=== PATIENT | male | born 1950 | race Caucasian/White ===

== ENCOUNTER 2020-08-20 10:18 | Inpatient (IN) ==
[2020-08-20] MEDS ORDERED: D5% in Water 1,000 ML IVC PRN (20:05)
[2020-08-20] MEDS ORDERED: Dextrose Gel 15 GM/37.5 ML TUBE PO PRN ×2 (20:05)
[2020-08-20] MEDS ORDERED: *HR* Dextrose 50 % in Water (Vial) 50 ML VIAL IVP PRN (20:05)
[2020-08-20] MEDS: Budesonide/Formoterol 160/4.5 1 PUFF INH IH SCH (20:35)
[2020-08-20] MEDS ORDERED: Insulin DETEMIR 100 UNIT/ML per UNIT SUBQ ONE (21:00)
[2020-08-20] MEDS: *HR* Amiodarone 200 MG TABLET PO SCH (21:42)
[2020-08-20] MEDS: Apixaban 2.5 MG TABLET PO SCH (21:42)
[2020-08-20] MEDS: Nystatin SUSP 5 ML UD.LIQ PO SCH (21:43)
[2020-08-21 05:03] LABS: Basophils % 0.2 %; Eosinophils % 1.3 %; Hematocrit 28.4 % (37.5-50.1); Hemoglobin 8.7 g/dL (12.9-16.9); Immature Granulocytes % 2.8 % (0-4); Lymphocytes # 1.2 K/mcL (0.6-4.6); Lymphocytes % 6.5 %; Mean Corpuscular HGB Conc 30.6 g/dL (31.6-35.5); Mean Corpuscular Hemoglobin 28.2 pg (28.0-33.3); Mean Corpuscular Volume 92.2 fL (83.0-100.0); Mean Platelet Volume 12.1 fL (9.4-12.4); Monocytes # 1.5 K/mcL (0.0-1.3); Neutrophils # 15.1 K/mcL (1.6-8.9); Platelet Count 288 K/mcL (140-400); Red Blood Count 3.08 M/mcL (4.19-5.50); Red Cell Distribution Width 16.6 % (11.5-14.5); Segmented Neutrophils % 81.2 %; White Blood Count 18.6 K/mcL (4.3-11.1)
[2020-08-21 05:04] LABS: Eosinophils # 0.2 K/mcL (0.0-0.6)
[2020-08-21 05:17] LABS: BUN/Creatinine Ratio 47 (6-26); Blood Urea Nitrogen 52 mg/dL (8-23); Calcium 8.7 mg/dL (8.6-10.3); Carbon Dioxide 36 mEq/L (23-29); Chloride 104 mEq/L (98-107); Glucose 164 mg/dL (70-105); Osmolality,Calculated 318 (280-300); Potassium 4.6 mEq/L (3.5-5.1); Sodium 145 mEq/L (136-145); eGFR For African Americans > 60 (> 60); eGFR For Non-African Americans > 60 (> 60)
[2020-08-21] MEDS: Budesonide/Formoterol 160/4.5 1 PUFF INH IH SCH ×2 (07:09→19:36)
[2020-08-21] MEDS: Tiotropium 10 INH DOSE IH SCH (07:09)
[2020-08-21] MEDS ORDERED: Furosemide 40 MG TABLET PO SCH (09:00)
[2020-08-21] MEDS: Insulin LISPRO 300 UNITS/3 ML VIAL SUBQ SCH ×6 (09:31→17:18)
[2020-08-21] MEDS: Apixaban 2.5 MG TABLET PO SCH ×2 (09:36→20:46)
[2020-08-21] MEDS: Famotidine 20 MG TABLET PO SCH (09:36)
[2020-08-21] MEDS: Nystatin SUSP 5 ML UD.LIQ PO SCH ×4 (09:36→20:47)
[2020-08-21] MEDS: Aspirin 81 MG TAB.CHEW PO SCH (09:36)
[2020-08-21] MEDS: Insulin DETEMIR 100 UNIT/ML X5UNITS SUBQ SCH ×2 (09:38→20:47)
[2020-08-21] MEDS: Albuterol 2.5 MG/3 ML NEBULIZER IH PRN ×2 (13:17→19:36)
[2020-08-21] MEDS: Acetaminophen 325 MG TABLET PO PRN ×2 (13:28→21:25)
[2020-08-21] MEDS ORDERED: levoFLOXacin 750 MG/150 ML 750 MG/150 ML BAG IVPB SCH (17:00)
[2020-08-21] MEDS: Furosemide 40 MG/4 ML VIAL IVP SCH (17:20)
[2020-08-21] MEDS: *HR* Amiodarone 200 MG TABLET PO SCH (20:47)
[2020-08-22 05:19] LABS: Basophils % 0.1 %; Eosinophils # 0.2 K/mcL (0.0-0.6); Eosinophils % 1.2 %; Hematocrit 26.7 % (37.5-50.1); Hemoglobin 8.2 g/dL (12.9-16.9); Immature Granulocytes % 1.4 % (0-4); Lymphocytes # 1.2 K/mcL (0.6-4.6); Lymphocytes % 6.1 %; Mean Corpuscular HGB Conc 30.7 g/dL (31.6-35.5); Mean Corpuscular Hemoglobin 28.1 pg (28.0-33.3); Mean Corpuscular Volume 91.4 fL (83.0-100.0); Monocytes # 1.4 K/mcL (0.0-1.3); Monocytes % 7.1 %; Platelet Count 276 K/mcL (140-400); Red Blood Count 2.92 M/mcL (4.19-5.50); Red Cell Distribution Width 16.3 % (11.5-14.5); Segmented Neutrophils % 84.1 %
[2020-08-22 05:42] LABS: BUN/Creatinine Ratio 37 (6-26); Blood Urea Nitrogen 50 mg/dL (8-23); Calcium 8.7 mg/dL (8.6-10.3); Carbon Dioxide 36 mEq/L (23-29); Chloride 101 mEq/L (98-107); Glucose 208 mg/dL (70-105); Osmolality,Calculated 313 (280-300); Potassium 4.5 mEq/L (3.5-5.1); Sodium 142 mEq/L (136-145); eGFR For African Americans > 60 (> 60); eGFR For Non-African Americans 53 (> 60)
[2020-08-22] MEDS: Acetaminophen 325 MG TABLET PO PRN ×2 (06:49→21:01)
[2020-08-22] MEDS: Nystatin SUSP 5 ML UD.LIQ PO SCH ×4 (08:57→21:03)
[2020-08-22] MEDS: Furosemide 40 MG/4 ML VIAL IVP SCH (08:57)
[2020-08-22] MEDS: Apixaban 2.5 MG TABLET PO SCH ×2 (08:57→21:03)
[2020-08-22] MEDS: Aspirin 81 MG TAB.CHEW PO SCH (08:57)
[2020-08-22] MEDS: Famotidine 20 MG TABLET PO SCH (08:57)
[2020-08-22] MEDS: Insulin LISPRO 300 UNITS/3 ML VIAL SUBQ SCH ×5 (08:58→18:32)
[2020-08-22] MEDS: Insulin DETEMIR 100 UNIT/ML X5UNITS SUBQ SCH ×2 (09:11→21:01)
[2020-08-22] MEDS: Tiotropium 10 INH DOSE IH SCH (10:16)
[2020-08-22] MEDS: Budesonide/Formoterol 160/4.5 1 PUFF INH IH SCH ×2 (10:16→18:40)
[2020-08-22] MEDS ORDERED: levoFLOXacin 750 MG/150 ML 750 MG/150 ML BAG IVPB SCH (11:00)
[2020-08-22] MEDS: Piperacillin/Tazobactam 3.375 GM in 0.9 % Sodium Chloride Mini Bag 100 ML IVPB SCH (16:18)
[2020-08-22] MEDS: Albuterol 2.5 MG/3 ML NEBULIZER IH PRN (18:40)
[2020-08-22] MEDS: *HR* Amiodarone 200 MG TABLET PO SCH (21:01)
[2020-08-23] MEDS: Piperacillin/Tazobactam 3.375 GM in 0.9 % Sodium Chloride Mini Bag 100 ML IVPB SCH ×3 (00:11→17:09)
[2020-08-23 06:12] LABS: BUN/Creatinine Ratio 29 (6-26); Blood Urea Nitrogen 39 mg/dL (8-23); Carbon Dioxide 33 mEq/L (23-29); Chloride 103 mEq/L (98-107); Glucose 100 mg/dL (70-105); Magnesium 1.9 mg/dL (1.6-2.6); Osmolality,Calculated 305 (280-300); Potassium 4.4 mEq/L (3.5-5.1); Sodium 143 mEq/L (136-145); eGFR For African Americans > 60 (> 60); eGFR For Non-African Americans 53 (> 60)
[2020-08-23] MEDS ORDERED: Ondansetron ODT 4 MG TAB.RAPDIS SL PRN (08:30)
[2020-08-23] MEDS: Insulin LISPRO 300 UNITS/3 ML VIAL SUBQ SCH ×3 (09:09→17:06)
[2020-08-23] MEDS: Aspirin 81 MG TAB.CHEW PO SCH (09:35)
[2020-08-23] MEDS: Famotidine 20 MG TABLET PO SCH (09:35)
[2020-08-23] MEDS: Insulin DETEMIR 100 UNIT/ML X5UNITS SUBQ SCH ×2 (09:35→20:49)
[2020-08-23] MEDS: Apixaban 2.5 MG TABLET PO SCH ×2 (09:35→20:49)
[2020-08-23] MEDS: Nystatin SUSP 5 ML UD.LIQ PO SCH ×4 (09:35→20:52)
[2020-08-23] MEDS: Budesonide/Formoterol 160/4.5 1 PUFF INH IH SCH ×2 (11:00→21:27)
[2020-08-23] MEDS: Tiotropium 10 INH DOSE IH SCH (11:26)
[2020-08-23] MEDS: Albuterol 2.5 MG/3 ML NEBULIZER IH PRN ×2 (11:26→21:30)
[2020-08-23] MEDS: *HR* Amiodarone 200 MG TABLET PO SCH (20:48)
[2020-08-24] MEDS: Piperacillin/Tazobactam 3.375 GM in 0.9 % Sodium Chloride Mini Bag 100 ML IVPB SCH ×3 (00:31→16:37)
[2020-08-24] MEDS: Tiotropium 10 INH DOSE IH SCH (07:11)
[2020-08-24] MEDS: Budesonide/Formoterol 160/4.5 1 PUFF INH IH SCH ×2 (07:11→20:41)
[2020-08-24] MEDS: Albuterol 2.5 MG/3 ML NEBULIZER IH PRN ×2 (07:11→20:40)
[2020-08-24] MEDS: Nystatin SUSP 5 ML UD.LIQ PO SCH ×4 (09:24→21:27)
[2020-08-24] MEDS: Apixaban 2.5 MG TABLET PO SCH ×2 (09:24→21:23)
[2020-08-24] MEDS: Aspirin 81 MG TAB.CHEW PO SCH (09:24)
[2020-08-24] MEDS: Insulin DETEMIR 100 UNIT/ML X5UNITS SUBQ SCH ×2 (09:24→21:24)
[2020-08-24] MEDS: Famotidine 20 MG TABLET PO SCH (09:24)
[2020-08-24] MEDS: Insulin LISPRO 300 UNITS/3 ML VIAL SUBQ SCH ×3 (09:25→16:38)
[2020-08-24 11:09] LABS: Basophils % 0.2 %; Eosinophils # 0.2 K/mcL (0.0-0.6); Eosinophils % 1.2 %; Hematocrit 24.6 % (37.5-50.1); Hemoglobin 7.4 g/dL (12.9-16.9); Immature Granulocytes % 1.3 % (0-4); Lymphocytes # 0.9 K/mcL (0.6-4.6); Mean Corpuscular HGB Conc 30.1 g/dL (31.6-35.5); Mean Corpuscular Hemoglobin 27.8 pg (28.0-33.3); Mean Corpuscular Volume 92.5 fL (83.0-100.0); Mean Platelet Volume 11.3 fL (9.4-12.4); Monocytes # 0.9 K/mcL (0.0-1.3); Monocytes % 6.1 %; Neutrophils # 12.5 K/mcL (1.6-8.9); Platelet Count 282 K/mcL (140-400); Red Blood Count 2.66 M/mcL (4.19-5.50); Red Cell Distribution Width 16.5 % (11.5-14.5); Segmented Neutrophils % 85.2 %; White Blood Count 14.7 K/mcL (4.3-11.1)
[2020-08-24 11:23] LABS: BUN/Creatinine Ratio 37 (6-26); Blood Urea Nitrogen 48 mg/dL (8-23); Calcium 8.8 mg/dL (8.6-10.3); Carbon Dioxide 32 mEq/L (23-29); Chloride 101 mEq/L (98-107); Glucose 341 mg/dL (70-105); Osmolality,Calculated 310 (280-300); Potassium 4.9 mEq/L (3.5-5.1); Sodium 137 mEq/L (136-145); eGFR For African Americans > 60 (> 60); eGFR For Non-African Americans 54 (> 60)
[2020-08-24] MEDS: *HR* Amiodarone 200 MG TABLET PO SCH (21:21)
[2020-08-24] MEDS: Acetaminophen 325 MG TABLET PO PRN (21:22)
[2020-08-25] MEDS: Piperacillin/Tazobactam 3.375 GM in 0.9 % Sodium Chloride Mini Bag 100 ML IVPB SCH ×3 (00:42→16:48)
[2020-08-25] MEDS: Acetaminophen 325 MG TABLET PO PRN ×2 (04:57→18:03)
[2020-08-25] MEDS: Insulin LISPRO 300 UNITS/3 ML VIAL SUBQ SCH ×3 (09:11→17:32)
[2020-08-25] MEDS: Insulin DETEMIR 100 UNIT/ML X5UNITS SUBQ SCH ×2 (09:12→20:41)
[2020-08-25] MEDS: Apixaban 2.5 MG TABLET PO SCH ×2 (09:13→20:41)
[2020-08-25] MEDS: Famotidine 20 MG TABLET PO SCH (09:13)
[2020-08-25] MEDS: Nystatin SUSP 5 ML UD.LIQ PO SCH ×4 (09:14→20:41)
[2020-08-25] MEDS: Aspirin 81 MG TAB.CHEW PO SCH (09:14)
[2020-08-25] MEDS: Albuterol 2.5 MG/3 ML NEBULIZER IH PRN ×4 (10:23→21:22)
[2020-08-25] MEDS: Budesonide/Formoterol 160/4.5 1 PUFF INH IH SCH ×2 (10:23→21:21)
[2020-08-25] MEDS: Tiotropium 10 INH DOSE IH SCH (10:24)
[2020-08-25 18:00] LABS: Hemoglobin 6.6 g/dL (12.9-16.9); Mean Corpuscular Hemoglobin 27.7 pg (28.0-33.3); Mean Corpuscular Volume 92.4 fL (83.0-100.0); Mean Platelet Volume 11.4 fL (9.4-12.4); Platelet Count 274 K/mcL (140-400); Red Blood Count 2.38 M/mcL (4.19-5.50); Red Cell Distribution Width 16.7 % (11.5-14.5); White Blood Count 13.6 K/mcL (4.3-11.1)
[2020-08-25 18:18] LABS: Albumin 2.7 g/dL (3.5-5.7); Albumin/Globulin Ratio 1.1 (1.1-2.2); Bilirubin,Total 0.4 mg/dL (0.3-1.0); Calcium 8.4 mg/dL (8.6-10.3); Globulin 2.5 g/dL (2.4-3.5); Magnesium 1.6 mg/dL (1.6-2.6); Potassium 4.3 mEq/L (3.5-5.1); Total Protein 5.2 g/dL (6.4-8.9)
[2020-08-25] MEDS ORDERED: 0.9 % Sodium Chloride 250 ML ONE (20:24)
[2020-08-25] MEDS: *HR* Amiodarone 200 MG TABLET PO SCH (20:41)
[2020-08-26] MEDS: Piperacillin/Tazobactam 3.375 GM in 0.9 % Sodium Chloride Mini Bag 100 ML IVPB SCH ×2 (00:57→09:11)
[2020-08-26] MEDS: Albuterol 2.5 MG/3 ML NEBULIZER IH PRN (01:06)
[2020-08-26] MEDS ORDERED: ALPRAZolam 1 MG TABLET PO ONE (01:38)
[2020-08-26 07:10] LABS: Basophils % 0.1 %; Eosinophils # 0.3 K/mcL (0.0-0.6); Eosinophils % 1.8 %; Hematocrit 24.4 % (37.5-50.1); Hemoglobin 7.4 g/dL (12.9-16.9); Immature Granulocytes % 1.1 % (0-4); Lymphocytes % 6.9 %; Mean Corpuscular HGB Conc 30.3 g/dL (31.6-35.5); Mean Corpuscular Hemoglobin 27.4 pg (28.0-33.3); Mean Corpuscular Volume 90.4 fL (83.0-100.0); Monocytes % 6.9 %; Neutrophils # 11.4 K/mcL (1.6-8.9); Nucleated Red Blood Cells 0.1 /100 WBC (0); Platelet Count 246 K/mcL (140-400); Red Cell Distribution Width 17.4 % (11.5-14.5); Segmented Neutrophils % 83.2 %; White Blood Count 13.7 K/mcL (4.3-11.1)
[2020-08-26 07:24] LABS: BUN/Creatinine Ratio 36 (6-26); Blood Urea Nitrogen 47 mg/dL (8-23); Calcium 8.3 mg/dL (8.6-10.3); Carbon Dioxide 26 mEq/L (23-29); Chloride 107 mEq/L (98-107); Glucose 223 mg/dL (70-105); Osmolality,Calculated 309 (280-300); Potassium 4.2 mEq/L (3.5-5.1); Sodium 140 mEq/L (136-145); eGFR For African Americans > 60 (> 60); eGFR For Non-African Americans 55 (> 60)
[2020-08-26] MEDS: Famotidine 20 MG TABLET PO SCH (09:12)
[2020-08-26] MEDS: Apixaban 2.5 MG TABLET PO SCH (09:12)
[2020-08-26] MEDS: Aspirin 81 MG TAB.CHEW PO SCH (09:12)
[2020-08-26] MEDS: Nystatin SUSP 5 ML UD.LIQ PO SCH (09:12)
[2020-08-26] MEDS: Insulin LISPRO 300 UNITS/3 ML VIAL SUBQ SCH (09:13)
[2020-08-26] MEDS: Insulin DETEMIR 100 UNIT/ML X5UNITS SUBQ SCH (09:16)
[2020-08-26] MEDS: Budesonide/Formoterol 160/4.5 1 PUFF INH IH SCH (09:43)
[2020-08-26] MEDS: Tiotropium 10 INH DOSE IH SCH (09:44)
[2020-08-26 11:32] VITALS: BP 128/58
== END 2020-08-26 12:45 | disposition short-term general hospital (02) | DRG 949 ==
LOC: INPGRE 18:51
PROVIDERS: ADMIT Family Medicine; ATTEND Family Medicine

== ENCOUNTER 2020-11-19 15:16 | Inpatient (IN) ==
[2020-11-19] MEDS ORDERED: Ipratropium/Albuterol Neb 3 ML IH ONE (15:44)
[2020-11-19 16:06] LABS: Basophils % 0.3 %; Eosinophils # 0.2 K/mcL (0.0-0.6); Eosinophils % 2.1 %; Hematocrit 32.7 % (37.5-50.1); Hemoglobin 9.5 g/dL (12.9-16.9); Immature Granulocytes % 0.7 % (0-4); Lymphocytes # 1.5 K/mcL (0.6-4.6); Lymphocytes % 16.2 %; Mean Corpuscular HGB Conc 29.1 g/dL (31.6-35.5); Mean Corpuscular Hemoglobin 24.5 pg (28.0-33.3); Mean Corpuscular Volume 84.5 fL (83.0-100.0); Monocytes % 10.8 %; Neutrophils # 6.5 K/mcL (1.6-8.9); Platelet Count 210 K/mcL (140-400); Red Blood Count 3.87 M/mcL (4.19-5.50); Red Cell Distribution Width 19.3 % (11.5-14.5); Segmented Neutrophils % 69.9 %; White Blood Count 9.3 K/mcL (4.3-11.1)
[2020-11-19 16:22] LABS: BUN/Creatinine Ratio 32 (6-26); Blood Urea Nitrogen 39 mg/dL (8-23); Calcium 7.9 mg/dL (8.6-10.3); Carbon Dioxide 29 mEq/L (23-29); Chloride 105 mEq/L (98-107); Glucose 188 mg/dL (70-105); Osmolality,Calculated 310 (280-300); Potassium 4.2 mEq/L (3.5-5.1); Sodium 143 mEq/L (136-145); eGFR For African Americans > 60 (> 60); eGFR For Non-African Americans 59 (> 60)
[2020-11-19 16:26] LABS: Troponin I 0.04 ng/mL (< 0.04)
[2020-11-19] MEDS ORDERED: Isovue-370 500 ML BOTTLE IVP ONE (16:44)
[2020-11-20] MEDS ORDERED: Ipratropium/Albuterol Neb 3 ML IH ONE (07:25)
[2020-11-20] MEDS ORDERED: Ipratropium/Albuterol Neb 3 ML ONE (07:27)
[2020-11-20] MEDS ORDERED: Aspirin 81 MG TAB.CHEW PO STA (08:51)
[2020-11-20] MEDS ORDERED: Ondansetron 4 MG/2 ML VIAL IVP PRN (14:34)
[2020-11-20] MEDS ORDERED: Naloxone 0.4 MG/ML INJ IVP PRN (14:34)
[2020-11-20] MEDS ORDERED: Acetaminophen 325 MG TABLET PO PRN (14:34)
[2020-11-20] MEDS ORDERED: Nitroglycerin 0.4 MG TAB.SUBL SL PRN (14:39)
[2020-11-20 15:33] LABS: Hematocrit 34.2 % (37.5-50.1); Mean Corpuscular HGB Conc 29.2 g/dL (31.6-35.5); Mean Corpuscular Volume 85.5 fL (83.0-100.0); Platelet Count 215 K/mcL (140-400); Red Cell Distribution Width 19.9 % (11.5-14.5)
[2020-11-20 15:52] LABS: BUN/Creatinine Ratio 30 (6-26); Blood Urea Nitrogen 37 mg/dL (8-23); Calcium 8.2 mg/dL (8.6-10.3); Carbon Dioxide 32 mEq/L (23-29); Chloride 107 mEq/L (98-107); Glucose 141 mg/dL (70-105); Magnesium 1.8 mg/dL (1.6-2.6); Osmolality,Calculated 309 (280-300); Potassium 4.2 mEq/L (3.5-5.1); Sodium 144 mEq/L (136-145); eGFR For African Americans > 60 (> 60); eGFR For Non-African Americans 58 (> 60)
[2020-11-20] MEDS: Ipratropium/Albuterol Neb 3 ML IH SCH ×3 (16:16→23:56)
[2020-11-20] MEDS: Insulin LISPRO 300 UNITS/3 ML VIAL SUBQ SCH (18:33)
[2020-11-20] MEDS: Furosemide 40 MG/4 ML VIAL IVP SCH (18:35)
[2020-11-20] MEDS: Budesonide/Formoterol 160/4.5 1 PUFF INH IH SCH (19:42)
[2020-11-20] MEDS: Gabapentin 400 MG CAPSULE PO SCH (20:43)
[2020-11-20] MEDS: *HR* Amiodarone 200 MG TABLET PO SCH (20:49)
[2020-11-20] MEDS ORDERED: Apixaban 2.5 MG TABLET PO SCH (21:00)
[2020-11-20] MEDS: Sacubitril/Valsartan 24/26 MG 1 TABLET PO SCH (23:56)
[2020-11-21] MEDS: Ipratropium/Albuterol Neb 3 ML IH SCH ×5 (03:28→19:51)
[2020-11-21 06:47] LABS: Hematocrit 30.4 % (37.5-50.1); Hemoglobin 8.9 g/dL (12.9-16.9); Mean Corpuscular HGB Conc 29.3 g/dL (31.6-35.5); Mean Corpuscular Hemoglobin 24.8 pg (28.0-33.3); Mean Corpuscular Volume 84.7 fL (83.0-100.0); Mean Platelet Volume 11.4 fL (9.4-12.4); Platelet Count 218 K/mcL (140-400); Red Blood Count 3.59 M/mcL (4.19-5.50); Red Cell Distribution Width 19.9 % (11.5-14.5)
[2020-11-21 07:31] LABS: BUN/Creatinine Ratio 29 (6-26); Blood Urea Nitrogen 35 mg/dL (8-23); Carbon Dioxide 32 mEq/L (23-29); Chloride 105 mEq/L (98-107); Glucose 124 mg/dL (70-105); Magnesium 1.8 mg/dL (1.6-2.6); Osmolality,Calculated 305 (280-300); Potassium 3.8 mEq/L (3.5-5.1); Sodium 143 mEq/L (136-145); eGFR For African Americans > 60 (> 60); eGFR For Non-African Americans 59 (> 60)
[2020-11-21] MEDS: Insulin LISPRO 300 UNITS/3 ML VIAL SUBQ SCH ×3 (07:55→17:38)
[2020-11-21] MEDS: Metoprolol XL (24 HR) Succ 25 MG TAB.ER.24H PO SCH (07:56)
[2020-11-21] MEDS: Gabapentin 400 MG CAPSULE PO SCH ×2 (07:56→21:24)
[2020-11-21] MEDS: Famotidine 20 MG TABLET PO SCH (07:56)
[2020-11-21] MEDS: Aspirin 81 MG TAB.CHEW PO SCH (07:56)
[2020-11-21] MEDS: Furosemide 40 MG/4 ML VIAL IVP SCH ×2 (07:57→16:54)
[2020-11-21] MEDS: Insulin DETEMIR 100 UNIT/ML X5UNITS SUBQ SCH ×2 (08:10→21:31)
[2020-11-21] MEDS: Budesonide/Formoterol 160/4.5 1 PUFF INH IH SCH ×2 (08:40→19:51)
[2020-11-21] MEDS ORDERED: Perflutren Lipid Microsphere 1.3 ML in 0.9 % Sodium Chloride 8.7 ML IVP PRN (11:48)
[2020-11-21] MEDS: *HR* Enoxaparin 80 MG/0.8 ML SYRINGE SQ SCH (17:47)
[2020-11-21] MEDS ORDERED: Sacubitril/Valsartan 24/26 MG 1 TABLET PO SCH (21:00)
[2020-11-21] MEDS: Sacubitril/Valsartan 24/26 MG 1 TABLET PO SCH (21:24)
[2020-11-21] MEDS: *HR* Amiodarone 200 MG TABLET PO SCH (21:24)
[2020-11-22] MEDS: Ipratropium/Albuterol Neb 3 ML IH SCH ×5 (00:42→16:24)
[2020-11-22] MEDS: *HR* Enoxaparin 80 MG/0.8 ML SYRINGE SQ SCH ×2 (04:19→17:07)
[2020-11-22] MEDS ORDERED: *HR* Enoxaparin 40 MG/0.4 ML SYRINGE SQ SCH (06:00)
[2020-11-22] MEDS: Budesonide/Formoterol 160/4.5 1 PUFF INH IH SCH (06:54)
[2020-11-22] MEDS: Insulin LISPRO 300 UNITS/3 ML VIAL SUBQ SCH ×3 (07:38→17:07)
[2020-11-22] MEDS: Famotidine 20 MG TABLET PO SCH (08:18)
[2020-11-22] MEDS: Metoprolol XL (24 HR) Succ 25 MG TAB.ER.24H PO SCH (08:18)
[2020-11-22] MEDS: Gabapentin 400 MG CAPSULE PO SCH (08:18)
[2020-11-22] MEDS: Aspirin 81 MG TAB.CHEW PO SCH (08:18)
[2020-11-22] MEDS: Furosemide 20 MG/2 ML VIAL IVP SCH ×2 (08:19→17:07)
[2020-11-22] MEDS: Insulin DETEMIR 100 UNIT/ML X5UNITS SUBQ SCH (09:24)
[2020-11-22 16:15] VITALS: BP 124/64; PULSE 67; RESP 18; TEMP 97.6; O2SAT 92
== END 2020-11-22 17:38 | disposition short-term general hospital (02) | DRG 291 ==
LOC: INPGRE 15:16 → EMEROOGRE 15:16 → INPGRE 11-20 15:00
PROVIDERS: ADMIT Family Medicine; ATTEND Family Medicine